=== PATIENT | female | born 1965 | race Caucasian/White ===

== ENCOUNTER 2023-12-08 12:03 | Outpatient (REF) | payer BC, SELFPAY ==
[2023-12-08 14:29] LABS: ALT 32 U/L (14-59); AST 22 U/L (15-37); Albumin 4.2 g/dL (3.4-5.0); Alkaline Phosphatase 81 U/L (46-116); Anion Gap 2.8 mmol/L (3-11); BUN 19 mg/dL (7-18); Bilirubin, Total 0.6 mg/dL (0.2-1.0); CO2 32.2 mmol/L (21.0-32.0); CREATININE 0.8 mg/dL (0.55-1.02); Calcium 9.3 mg/dL (8.5-10.1); Calculated LDL 154 mg/dL (<100); Chloride 106 mmol/L (98-107); Cholesterol 254 mg/dL (<200); Estimated GFR 84.82 (mL/min/1.73m2); Glucose 103 mg/dL (74-106); HDL Cholesterol 87 mg/dL (40-60); Potassium 4.4 mmol/L (3.5-5.1); Sodium 141 mmol/L (136-145); Total Protein 7.2 g/dL (6.4-8.2); Triglyceride 69 mg/dL (<150)
[2023-12-08 14:31] LABS: Hemoglobin A1C 5.7 % (<5.7)
== END 2023-12-08 12:04 | disposition home or self-care (01) ==
LOC: NCHCN 12:03
PROVIDERS: Visit Provider Internal Medicine
DX: E78.5 Hyperlipidemia, unspecified (principal)
CPT/HCPCS: 80053; 80061; 83036

== ENCOUNTER 2024-12-17 11:53 | Outpatient (REF) | payer BC, SELFPAY ==
[2024-12-17 15:52] LABS: Calculated LDL 172 mg/dL (<100); Cholesterol 265 mg/dL (<200); HDL Cholesterol 78 mg/dL (>or=50); Triglyceride 79 mg/dL (<150)
[2024-12-17 16:13] LABS: Hemoglobin A1C 5.6 % (<5.7)
== END 2024-12-17 11:54 | disposition home or self-care (01) ==
LOC: NCHCN 11:53
PROVIDERS: PCP Internal Medicine; Visit Provider Internal Medicine
DX: E78.5 Hyperlipidemia, unspecified (principal); R73.03 Prediabetes
CPT/HCPCS: 80061; 83036